=== PATIENT | female | born 1960 | race Caucasian/White ===

== ENCOUNTER 2018-03-08 09:00 | Outpatient (CLI) | payer MEDICAID ==
[~2018-03-08] VITALS: Ht 154.9 cm; Wt 81.2 kg
[~2018-03-08 09:00] MED LIST: CLON-529 PO; DULO-31 PO; HYDR-4353 PO; TIOT4MIS3 INH
[2018-03-08] MEDS ORDERED: albuterol 2.5 MG/3 ML nebule NEB ONE (10:30)
== END 2018-03-08 23:59 | disposition home or self-care (01) ==
LOC: RT 09:00
PROVIDERS: ATTEND Thoracic Surgery (Cardiothoracic Vascular Surgery)
DX: R91.8 Other nonspecific abnormal finding of lung field (principal); F17.200 Nicotine dependence, unspecified, uncomplicated; Z90.710 Acquired absence of both cervix and uterus
CPT/HCPCS: 94060; 94727; 94729; 94760

== ENCOUNTER 2018-04-19 05:41 | Inpatient (IN) | payer MEDICAID ==
[2018-04-17 13:48] LABS: BASOPHILS % (AUTO) 0.5 % (0-1); EOSINOPHILS # (AUTO) 0.2 X10'3 (0-0.9); EOSINOPHILS % (AUTO) 1.8 % (0-6); LYMPHOCYTES # (AUTO) 1.5 X10'3 (1.1-4.8); LYMPHOCYTES % (AUTO) 17.7 % (21-51); MEAN CORPUSCULAR HEMOGLOBIN 27.4 PG (27.0-31.0); MEAN CORPUSCULAR HGB CONC 32.4 % (33.0-36.5); MEAN CORPUSCULAR VOLUME 84.8 FL (78-98); MEAN PLATELET VOLUME 8.7 FL (7.4-10.4); MONOCYTES # (AUTO) 0.6 X10'3 (0-0.9); MONOCYTES % (AUTO) 6.9 % (2-12); NEUTROPHILS # (AUTO) 6.4 X10'3 (1.8-7.7); NEUTROPHILS % (AUTO) 73.1 % (42-75); PRE OP HEMOGLOBIN 13.3 g/dL (12.0-16.0); PRE OP PLATELET COUNT 296 X10'3 (140-440); RED BLOOD COUNT 4.84 X10'6 (4.20-5.60); RED CELL DISTRIBUTION WIDTH 14.9 % (11.5-14.5)
[2018-04-17 13:54] LABS: CLARITY,URINE CLEAR (Clear); COLOR,URINE YELLOW (Yellow); GLUCOSE, URINE NEGATIVE (Neg); KETONES,URINE NEGATIVE (Neg); LEUKOCYTE ESTERASE ,URINE NEGATIVE (Neg); NITRITES, URINE NEGATIVE (Neg); OCCULT BLOOD,URINE NEGATIVE (Neg); PROTEIN,URINE NEGATIVE (Neg); UROBILINOGEN,URINE 0.2 E.U/dL (0.2-1.0)
[2018-04-17 13:56] LABS: UA COLLECTION TYPE CLN CATCH MIDSTREAM
[2018-04-17 13:59] LABS: HEMOGLOBIN A1C 6.1 % (4.5-6.2)
[2018-04-17 14:05] LABS: ALBUMIN 3.6 G/DL (3.4-5.0); ALKALINE PHOSPHATASE 92 IU/L (46-116); BLOOD UREA NITROGEN 23 MG/DL (7-18); BUN/CREATININE RATIO 23.2 (6.6-38.0); CALCIUM 9.5 MG/DL (8.5-10.1); CHLORIDE 104 MMOL/L (99-107); CREATININE 0.99 MG/DL (0.40-0.90); PRE OP ALT 23 U/L (30-65); PRE OP ANION GAP 9 (8-16); PRE OP AST 13 U/L (10-37); PRE OP BILIRUB, TOTAL 0.2 MG/DL (0.0-1.0); PRE OP GLUCOSE 109 MG/DL (70-104); PRE OP POTASSIUM 3.7 MMOL/L (3.4-5.1); PRE OP SODIUM 141 MMOL/L (135-145); TOTAL CARBON DIOXIDE 28.4 MMOL/L (24-32); TOTAL PROTEIN 7.2 G/DL (6.4-8.2); eGFR 57 ML/MIN
[2018-04-17 14:08] LABS: PRE OP PROTIME 9.8 SECONDS (9.0-12.0)
[2018-04-17 15:56] LABS: ABG BASE EXCESS 1.2 mmol/L (-2.0-3.0); ABG OXYGEN SATURATION 95.7 % (95-98); ABG PCO2 (T) 37.2 mmHg (32.0-45.0); ABG PH (T) 7.446 (7.350-7.450); ABG PO2 (T) 78.2 mmHg (83-108); ALLEN'S TEST Positive; FCOHb 5.9 % (0.5-1.5); FMetHb 0.3 % (0.3-1.12); FO2Hb 89.8 % (94-100); TOTAL HEMOGLOBIN 13.7 G/dl (12.0-16.0)
[2018-04-19] VITALS (28 sets, daily range): BP systolic 123–184; BP diastolic 69–102
[~2018-04-19] VITALS: Ht 154.9 cm; Wt 80.0 kg
[~2018-04-19 05:41] MED LIST changes: +cefazolin/dext.iso 2gm/50ml 50 ML IV ONE; +famotidine 20mg tablet PO ONE; +ringers solution, lacted 1,000 ML IV SCH
[2018-04-19] MEDS ORDERED: LIDOcaine 1% (10mg/ml) 2ml vial ONE ×2 (06:01→06:48)
[2018-04-19] MEDS ORDERED: BUPIVAcaine/PF 2.5mg/ml (0.25%) 10ml vial ONE (06:37)
[2018-04-19] MEDS ORDERED: albuterol 2.5 MG/3 ML nebule NEB ONE (06:45)
[2018-04-19] MEDS ORDERED: sevoflurane 250ml liquid IH ONE (07:12)
[2018-04-19] MEDS ORDERED: dexamethasone sod phosphate 10mg/ml inj ONE (07:12)
[2018-04-19] MEDS ORDERED: MIDAZolam 5mg/5ml vial ONE (07:17)
[2018-04-19] MEDS ORDERED: fentaNYL /PF 50mcg/ml 5ml ampule ONE (07:17)
[2018-04-19] MEDS ORDERED: propofol inj 20 ML IV ONE (07:19)
[2018-04-19] MEDS ORDERED: rocuronium 10mg/ml inj IV ONE (07:20)
[2018-04-19] MEDS ORDERED: albuterol 2.5 MG/3 ML nebule NEB PRN ×2 (09:25)
[2018-04-19] MEDS ORDERED: morphine 4 MG/ML inj SYRINge IV PRN ×5 (09:25→10:00)
[2018-04-19] MEDS ORDERED: HYDROcodone/acetaminophen 10/325mg tab PO PRN ×2 (09:25)
[2018-04-19] MEDS ORDERED: metoclopramide 5 mg/ml inj IV PRN ×2 (09:25→09:35)
[2018-04-19] MEDS ORDERED: ondansetron/PF 4mg/2ml inj IV PRN ×3 (09:25→10:00)
[2018-04-19] MEDS ORDERED: CADD PCA waste documentation MC PRN ×2 (09:25→09:35)
[2018-04-19] MEDS ORDERED: naloxone 0.4 mg/ml inj IV PRN ×2 (09:25→09:35)
[2018-04-19] MEDS ORDERED: magnesium hydroxide 30ml (MOM) UD suspension PO PRN (09:25)
[2018-04-19] MEDS ORDERED: neostigmine methylsulfate 1 MG/ML 10ml vial ONE (09:41)
[2018-04-19] MEDS ORDERED: glycopyrrolate 0.2mg/ml inj ONE (09:41)
[2018-04-19] MEDS ORDERED: ketorolac trometh. 30mg/ml inj. ONE (09:41)
[2018-04-19] MEDS ORDERED: pancuronium br 1mg/ml inj IV ONE (09:46)
[2018-04-19] MEDS ORDERED: morphine 4 MG/ML inj SYRINge ONE (09:55)
[2018-04-19] MEDS ORDERED: ringers solution, lacted 1,000 ML IV SCH (09:57)
[2018-04-19] MEDS ORDERED: proCHLORperazine 10 MG/2 ml inj IV PRN (10:00)
[2018-04-19] MEDS ORDERED: ondansetron/PF 4mg/2ml inj ONE (10:06)
[2018-04-19 10:20] LABS: ABG BASE EXCESS -2.7 mmol/L (-2.0-3.0); ABG HCO3 24.1 mmol/L (22.0-26.0); ABG OXYGEN SATURATION 88.7 % (95-98); ABG PCO2 (T) 50.3 mmHg (32.0-45.0); ABG PH (T) 7.299 (7.350-7.450); ABG PO2 (T) 59.2 mmHg (83-108); FCOHb 1.9 % (0.5-1.5); FMetHb 0.2 % (0.3-1.12); FO2Hb 86.8 % (94-100); TOTAL HEMOGLOBIN 13.1 G/dl (12.0-16.0)
[2018-04-19] MEDS: morphine 4 MG/ML inj SYRINge IV PRN ×2 (10:32→14:28)
[2018-04-19 10:38] LABS: ALANINE AMINOTRANSFERASE 29 U/L (12-78); ALBUMIN 3.1 G/DL (3.4-5.0); ALKALINE PHOSPHATASE 86 IU/L (46-116); ANION GAP 11 (8-16); ASPARTATE AMINO TRANSFERASE 23 U/L (10-37); BILIRUBIN,TOTAL 0.2 MG/DL (0.1-1.0); BLOOD UREA NITROGEN 17 MG/DL (7-18); BUN/CREATININE RATIO 25.8 (6.6-38.0); CALCIUM 8.2 MG/DL (8.5-10.1); CHLORIDE 106 MMOL/L (99-107); CREATININE 0.66 MG/DL (0.40-0.90); GLUCOSE 160 MG/DL (70-104); POTASSIUM 3.7 MMOL/L (3.5-5.1); SODIUM 140 MMOL/L (135-145); TOTAL CARBON DIOXIDE 23.1 MMOL/L (24-32); TOTAL PROTEIN 6.2 G/DL (6.4-8.2); eGFR > 90 ML/MIN
[2018-04-19 10:39] LABS: BASOPHILS % (AUTO) 0.4 % (0-1); EOSINOPHILS % (AUTO) 0.4 % (0-6); HEMATOCRIT 36.4 % (35.0-45.0); HEMOGLOBIN 12.5 g/dl (12.0-16.0); LYMPHOCYTES # (AUTO) 1.1 X10'3 (1.1-4.8); LYMPHOCYTES % (AUTO) 9.3 % (21-51); MEAN CORPUSCULAR HEMOGLOBIN 28.9 PG (27.0-31.0); MEAN CORPUSCULAR HGB CONC 34.2 % (33.0-36.5); MEAN CORPUSCULAR VOLUME 84.4 FL (78-98); MEAN PLATELET VOLUME 9.1 FL (7.4-10.4); MONOCYTES # (AUTO) 0.1 X10'3 (0-0.9); NEUTROPHILS # (AUTO) 10.8 X10'3 (1.8-7.7); NEUTROPHILS % (AUTO) 88.9 % (42-75); PLATELET COUNT 236 X10'3 (140-440); RED BLOOD COUNT 4.32 X10'6 (4.20-5.60); RED CELL DISTRIBUTION WIDTH 13.9 % (11.5-14.5)
[2018-04-19] MEDS ORDERED: labetalol 20mg/4ml (5mg/ml) syringe IV ONE ×2 (10:45→10:47)
[2018-04-19] MEDS: HYDROcodone/acetaminophen 10/325mg tab PO PRN (12:19)
[2018-04-19] MEDS: ketorolac tromethamine 15mg/ml inj. IV SCH ×2 (14:00→20:07)
[2018-04-19] MEDS: ceFAZolin inj. 1,000 MG in dextrose 5%-water 50ml 50 ML IV SCH (14:35)
[2018-04-19] MEDS ORDERED: ceFAZolin inj. 1,000 MG in dextrose 5%-water 50ml 50 ML IV SCH (16:00)
[2018-04-19] MEDS: cloNIDine 0.1 mg tablet PO SCH ×2 (16:16→20:06)
[2018-04-19] MEDS: docusate sod 100mg capsule PO SCH (20:07)
[2018-04-19] MEDS: duloxetine 30mg CAPSULE.DR PO SCH (20:07)
[2018-04-20] VITALS (15 sets, daily range): BP systolic 125–175; BP diastolic 63–91
[2018-04-20] MEDS: ceFAZolin inj. 1,000 MG in dextrose 5%-water 50ml 50 ML IV SCH (01:46)
[2018-04-20] MEDS: ketorolac tromethamine 15mg/ml inj. IV SCH ×2 (02:11→07:46)
[2018-04-20 06:33] LABS: ALANINE AMINOTRANSFERASE 29 U/L (12-78); ALBUMIN/GLOBULIN RATIO 0.9 (1.1-1.5); ALKALINE PHOSPHATASE 85 IU/L (46-116); ANION GAP 12 (8-16); ASPARTATE AMINO TRANSFERASE 32 U/L (10-37); BILIRUBIN,TOTAL 0.3 MG/DL (0.1-1.0); BLOOD UREA NITROGEN 20 MG/DL (7-18); BUN/CREATININE RATIO 29.4 (6.6-38.0); CALCIUM 8.5 MG/DL (8.5-10.1); CHLORIDE 103 MMOL/L (99-107); CREATININE 0.68 MG/DL (0.40-0.90); GLUCOSE 115 MG/DL (70-104); POTASSIUM 4.1 MMOL/L (3.5-5.1); SODIUM 138 MMOL/L (135-145); TOTAL CARBON DIOXIDE 22.8 MMOL/L (24-32); TOTAL PROTEIN 6.3 G/DL (6.4-8.2); eGFR 89 ML/MIN
[2018-04-20 06:48] LABS: BASOPHILS % (AUTO) 0 % (0-1); EOSINOPHILS # (AUTO) 0.1 X10'3 (0-0.9); EOSINOPHILS % (AUTO) 0.7 % (0-6); HEMATOCRIT 37.1 % (35.0-45.0); HEMOGLOBIN 12.1 g/dl (12.0-16.0); LYMPHOCYTES # (AUTO) 1.1 X10'3 (1.1-4.8); LYMPHOCYTES % (AUTO) 6.9 % (21-51); MEAN CORPUSCULAR HGB CONC 32.7 % (33.0-36.5); MEAN CORPUSCULAR VOLUME 85.8 FL (78-98); MONOCYTES % (AUTO) 6.4 % (2-12); NEUTROPHILS # (AUTO) 13.5 X10'3 (1.8-7.7); PLATELET COUNT 259 X10'3 (140-440); RED BLOOD COUNT 4.33 X10'6 (4.20-5.60); WHITE BLOOD COUNT 15.7 X10'3 (4.5-11.0)
[2018-04-20] MEDS: cloNIDine 0.1 mg tablet PO SCH ×2 (07:46→21:21)
[2018-04-20] MEDS: docusate sod 100mg capsule PO SCH ×2 (08:00→21:21)
[2018-04-20] MEDS: morphine 4 MG/ML inj SYRINge IV PRN (12:37)
[2018-04-20] MEDS: ipratropium 0.5 MG/2.5ML nebule IH SCH ×2 (14:00→20:27)
[2018-04-20] MEDS ORDERED: cloNIDine 0.1 mg tablet PO SCH (20:00)
[2018-04-20] MEDS ORDERED: duloxetine 30mg CAPSULE.DR PO SCH (21:00)
[2018-04-20] MEDS: duloxetine 30mg CAPSULE.DR PO SCH (21:21)
[2018-04-21] VITALS (7 sets, daily range): BP systolic 110–147; BP diastolic 60–73
[2018-04-21] MEDS: HYDROcodone/acetaminophen 10/325mg tab PO PRN ×4 (00:55→20:01)
[2018-04-21] MEDS: ipratropium 0.5 MG/2.5ML nebule IH SCH ×4 (02:56→20:14)
[2018-04-21 05:29] LABS: ALBUMIN 2.9 G/DL (3.4-5.0); ANION GAP 10 (8-16); BLOOD UREA NITROGEN 18 MG/DL (7-18); CALCIUM 8.9 MG/DL (8.5-10.1); CHLORIDE 102 MMOL/L (99-107); CREATININE 0.62 MG/DL (0.40-0.90); GLUCOSE 123 MG/DL (70-104); SODIUM 136 MMOL/L (135-145); TOTAL CARBON DIOXIDE 23.9 MMOL/L (24-32); eGFR > 90 ML/MIN
[2018-04-21 05:31] LABS: BASOPHILS % (AUTO) 0.1 % (0-1); EOSINOPHILS # (AUTO) 0.1 X10'3 (0-0.9); HEMATOCRIT 36.6 % (35.0-45.0); HEMOGLOBIN 12.1 g/dl (12.0-16.0); LYMPHOCYTES # (AUTO) 1.5 X10'3 (1.1-4.8); LYMPHOCYTES % (AUTO) 11.4 % (21-51); MEAN CORPUSCULAR HEMOGLOBIN 27.9 PG (27.0-31.0); MEAN CORPUSCULAR VOLUME 84.4 FL (78-98); MEAN PLATELET VOLUME 9.3 FL (7.4-10.4); NEUTROPHILS # (AUTO) 10.2 X10'3 (1.8-7.7); NEUTROPHILS % (AUTO) 79.5 % (42-75); PLATELET COUNT 258 X10'3 (140-440); RED BLOOD COUNT 4.33 X10'6 (4.20-5.60); RED CELL DISTRIBUTION WIDTH 15.3 % (11.5-14.5); WHITE BLOOD COUNT 12.8 X10'3 (4.5-11.0)
[2018-04-21] MEDS: cloNIDine 0.1 mg tablet PO SCH ×2 (08:55→20:01)
[2018-04-21] MEDS: docusate sod 100mg capsule PO SCH ×2 (08:55→20:01)
[2018-04-21] MEDS: duloxetine 30mg CAPSULE.DR PO SCH (20:50)
[2018-04-22] MEDS: ipratropium 0.5 MG/2.5ML nebule IH SCH ×4 (02:00→21:05)
[2018-04-22 03:00] VITALS: BP 122/78
[2018-04-22] MEDS: HYDROcodone/acetaminophen 10/325mg tab PO PRN ×5 (03:34→22:15)
[2018-04-22 06:47] LABS: ALBUMIN 2.7 G/DL (3.4-5.0); ANION GAP 8 (8-16); BLOOD UREA NITROGEN 16 MG/DL (7-18); BUN/CREATININE RATIO 20.5 (6.6-38.0); CALCIUM 9.2 MG/DL (8.5-10.1); CHLORIDE 102 MMOL/L (99-107); CREATININE 0.78 MG/DL (0.40-0.90); GLUCOSE 112 MG/DL (70-104); POTASSIUM 4.2 MMOL/L (3.5-5.1); SODIUM 137 MMOL/L (135-145); eGFR 76 ML/MIN
[2018-04-22 06:53] VITALS: BP 138/77
[2018-04-22 07:07] LABS: BASOPHILS % (AUTO) 0.1 % (0-1); EOSINOPHILS # (AUTO) 0.4 X10'3 (0-0.9); EOSINOPHILS % (AUTO) 3.1 % (0-6); HEMATOCRIT 38.9 % (35.0-45.0); HEMOGLOBIN 12.7 g/dl (12.0-16.0); LYMPHOCYTES # (AUTO) 1.4 X10'3 (1.1-4.8); LYMPHOCYTES % (AUTO) 11.2 % (21-51); MEAN CORPUSCULAR HGB CONC 32.6 % (33.0-36.5); MEAN CORPUSCULAR VOLUME 85.8 FL (78-98); MEAN PLATELET VOLUME 8.9 FL (7.4-10.4); MONOCYTES # (AUTO) 1.2 X10'3 (0-0.9); MONOCYTES % (AUTO) 9.1 % (2-12); NEUTROPHILS # (AUTO) 9.8 X10'3 (1.8-7.7); NEUTROPHILS % (AUTO) 76.5 % (42-75); PLATELET COUNT 267 X10'3 (140-440); RED BLOOD COUNT 4.53 X10'6 (4.20-5.60); RED CELL DISTRIBUTION WIDTH 15.2 % (11.5-14.5); WHITE BLOOD COUNT 12.8 X10'3 (4.5-11.0)
[2018-04-22] MEDS: docusate sod 100mg capsule PO SCH ×2 (08:14→20:22)
[2018-04-22] MEDS: cloNIDine 0.1 mg tablet PO SCH ×2 (08:14→20:22)
[2018-04-22 11:00] VITALS: BP 127/70
[2018-04-22 17:03] VITALS: BP 154/73
[2018-04-22 18:50] VITALS: BP 128/88
[2018-04-22] MEDS: duloxetine 30mg CAPSULE.DR PO SCH (20:22)
[2018-04-22 22:00] VITALS: BP 124/63
[2018-04-23] VITALS (7 sets, daily range): BP systolic 129–158; BP diastolic 68–90
[2018-04-23] MEDS: ipratropium 0.5 MG/2.5ML nebule IH SCH ×3 (02:48→20:52)
[2018-04-23] MEDS: HYDROcodone/acetaminophen 10/325mg tab PO PRN ×4 (03:20→23:51)
[2018-04-23 06:06] LABS: BASOPHILS # (AUTO) 0.1 X10'3 (0-0.2); BASOPHILS % (AUTO) 0.5 % (0-1); EOSINOPHILS # (AUTO) 0.6 X10'3 (0-0.9); EOSINOPHILS % (AUTO) 5.1 % (0-6); HEMATOCRIT 36.6 % (35.0-45.0); HEMOGLOBIN 11.9 g/dl (12.0-16.0); LYMPHOCYTES # (AUTO) 1.5 X10'3 (1.1-4.8); LYMPHOCYTES % (AUTO) 13.9 % (21-51); MEAN CORPUSCULAR HEMOGLOBIN 27.8 PG (27.0-31.0); MEAN CORPUSCULAR HGB CONC 32.4 % (33.0-36.5); MEAN CORPUSCULAR VOLUME 85.7 FL (78-98); MEAN PLATELET VOLUME 9.1 FL (7.4-10.4); MONOCYTES % (AUTO) 9.2 % (2-12); NEUTROPHILS # (AUTO) 7.8 X10'3 (1.8-7.7); NEUTROPHILS % (AUTO) 71.3 % (42-75); PLATELET COUNT 301 X10'3 (140-440); RED BLOOD COUNT 4.27 X10'6 (4.20-5.60)
[2018-04-23 06:10] LABS: ALBUMIN 2.7 G/DL (3.4-5.0); ANION GAP 8 (8-16); BLOOD UREA NITROGEN 20 MG/DL (7-18); BUN/CREATININE RATIO 29.4 (6.6-38.0); CALCIUM 9.1 MG/DL (8.5-10.1); CHLORIDE 102 MMOL/L (99-107); CREATININE 0.68 MG/DL (0.40-0.90); GLUCOSE 110 MG/DL (70-104); SODIUM 138 MMOL/L (135-145); TOTAL CARBON DIOXIDE 28.5 MMOL/L (24-32); eGFR 89 ML/MIN
[2018-04-23] MEDS: docusate sod 100mg capsule PO SCH ×2 (07:27→20:19)
[2018-04-23] MEDS: cloNIDine 0.1 mg tablet PO SCH ×2 (07:27→20:19)
[2018-04-23] MEDS: duloxetine 30mg CAPSULE.DR PO SCH (20:19)
[2018-04-24 02:00] VITALS: BP 137/77
[2018-04-24] MEDS: ipratropium 0.5 MG/2.5ML nebule IH SCH ×2 (02:35→08:11)
[2018-04-24] MEDS: HYDROcodone/acetaminophen 10/325mg tab PO PRN ×2 (03:49→07:31)
[2018-04-24 05:39] LABS: ALBUMIN 2.5 G/DL (3.4-5.0); ANION GAP 8 (8-16); BLOOD UREA NITROGEN 17 MG/DL (7-18); BUN/CREATININE RATIO 22.1 (6.6-38.0); CHLORIDE 101 MMOL/L (99-107); CREATININE 0.77 MG/DL (0.40-0.90); GLUCOSE 141 MG/DL (70-104); POTASSIUM 3.8 MMOL/L (3.5-5.1); SODIUM 138 MMOL/L (135-145); eGFR 77 ML/MIN
[2018-04-24 06:56] VITALS: BP 142/82
[2018-04-24] MEDS ORDERED: COL100C PO (07:00)
[2018-04-24] MEDS: docusate sod 100mg capsule PO SCH (07:25)
[2018-04-24] MEDS: cloNIDine 0.1 mg tablet PO SCH (07:26)
[2018-04-24] MEDS ORDERED: nicotine 21mg patch - 24 hr TD SCH (08:00)
== END 2018-04-24 11:30 | disposition home or self-care (01) | DRG 351 ==
LOC: PAS IN 05:41 → EDSTATUS 08:30 → CICU 2S 12:03 → PCU 3S 04-20 12:45
PROVIDERS: ADMIT Thoracic Surgery (Cardiothoracic Vascular Surgery); ATTEND Thoracic Surgery (Cardiothoracic Vascular Surgery)
PROC: 0BBT0ZZ Excision of Diaphragm, Open Approach (ICD-10-PCS; 2018-04-19)
PROC: 02HV33Z Insertion of Infusion Device into Superior Vena Cava, Percutaneous Approach (ICD-10-PCS; 2018-04-19)
PROC: 0BJ08ZZ Inspection of Tracheobronchial Tree, Via Natural or Artificial Opening Endoscopic (ICD-10-PCS; principal; 2018-04-19 07:12)
DX: D21.3 Benign neoplasm of connective and other soft tissue of thorax (principal); F12.90 Cannabis use, unspecified, uncomplicated; F17.210 Nicotine dependence, cigarettes, uncomplicated; F41.9 Anxiety disorder, unspecified; G43.909 Migraine, unspecified, not intractable, without status migrainosus; H91.93 Unspecified hearing loss, bilateral; I10 Essential (primary) hypertension; J44.9 Chronic obstructive pulmonary disease, unspecified; F32.9 Major depressive disorder, single episode, unspecified; L40.9 Psoriasis, unspecified; M19.90 Unspecified osteoarthritis, unspecified site; R53.82 Chronic fatigue, unspecified; Z87.01 Personal history of pneumonia (recurrent); Z88.8 Allergy status to other drugs, medicaments and biological substances
CPT/HCPCS: 36415; 36600; 71045; 71046; 80048; 80053; 81003; 82803; 82948; 83036; 85018; 85025; 85610; 85730; 86885; 86900; 86901; 87070; 93005; 94640; 94667; 94668; 94760; 97110; 97116; 97161; 97530; A6251; A6449; A7000; A7048; C1758; G0378; J0690; J1100; J1885; J2250; J2270; J2405; J2704; J2710; J3010; J3490; J7030; J7060; J7120